=== PATIENT | female | born 1975 | race Hispanic/Latino ===

== ENCOUNTER 2025-01-06 08:59 | Emergency (ER) | payer SELFPAY ==
[~2025-01-06] VITALS: Ht 165.1 cm; Wt 77.1 kg
--- NOTE | 2025-01-06 09:36 | ERN ---
General Chief Complaint: Diarrhea Stated Complaint: DIARRHEA Time Seen by MD: 09:06 History of Present Illness Initial Comments 49-year-old female who presents for weakness and diarrhea. Patient reports for the last three or four days she has been having subjective fevers, so lower abdominal cramping, and multiple episodes of diarrhea. Nausea without vomiting. She was p.o. tolerant but she reports she has a loose stools right after eating. She feels very weak in his no energy. She reports she has been sleeping all day. No cough or congestion. No urinary symptoms. Allergies: Coded Allergies: diphenhydramine (Unverified Allergy, Unknown, 01/06/25) Past Medical History Past Medical History: Cancer, GERD Past Surgical History: Hysterectomy, Other Surgical History Other: MASECTOMY ROS Dictation CONSTITUTIONAL: Generalized weakness and fatigue HEAD/FACE: No signs of trauma. EENT: No eye pain, no blurred vision, no tearing, no double vision, no ear pain, no ear discharge, no nose pain, no nasal congestion, no throat pain, no throat swelling, no mouth pain. RESPIRATORY: No cough, no orthopnea, no SOB, no stridor, no wheezing. CARDIOVASCULAR: No chest pain, no edema, no palpitations, no syncope. GASTROINTESTINAL/ABDOMINAL: Lower abdominal pain and diarrhea GENITOURINARY: No abnormal discharge, no dysuria, no frequent urination, no hematuria. No complaints of pain in the genitals. MUSCULOSKELETAL: No back pain, no gout, no joint pain, no joint swelling, no muscle pain, no muscle stiffness, no neck pain. INTEGUMENTARY: No change in color, no change in hair/nails, no dryness, no lesion, no lumps, no rash. NEUROLOGICAL/PSYCH: No anxiety, not depressed, no emotional problem, no headache, no numbness, no pre-existing deficit, no history of seizures, no tremors, no weakness. HEMATOLOGIC/LYMPHATIC: Not anemic, no history of blood clots, no apparent bleeding, no bruising, glands not swollen. All Systems Negative, Except as Noted. Physical Exam Physical Exam Dictation VITAL SIGNS: Reviewed. GENERAL APPEARANCE: Alert, oriented x3, no acute distress EYES: PERRL, pink conjunctivas, eyelid no trauma, anterior chamber clear. EARS: Pinnas intact and no signs of trauma or erythema. Ear canals clear and no discharge. TMs no erythema. NOSE: No discharge, no bleeding. OROPHARYNX: Mouth normal, teeth no caries, tongue pink. Pharynx clear, no erythema. Tonsils no exudates, no abscesses noted. Mucous membrane moist. NECK: Supple, non-tender, no thyromegaly, no masses, no JVD, no bruits. BREAST: Deferred. CHEST: No tenderness, no crepitus, no paradoxical movement, no retractions. LUNGS: Clear, well-ventilated, symmetric, no rales, no wheezing, no rhonchi, no stridor, good breath sounds bilaterally. HEART: Regular rate, regular rhythm, no murmur, no gallops. VASCULAR: No peripheral edema. ABDOMEN: Soft, positive bowel sounds, nondistended, no guarding, nontender, no rebound, no masses no hepatomegaly, no splenomegaly, no Robb's sign, no hernias. RECTAL: Deferred. GENITAL: Deferred. NEUROLOGICAL: Normal speech, gross motor function intact, gross sensory function intact. MUSCULOSKELETAL: Neck nontender, full range of motion, back nontender, full range of motion. EXTREMITIES: Nontender, full range of motion. SKIN: Color pink, dry, no turgor, no rash, no lacerations, no abrasions, no contusions. LYMPHATICS: Deferred. Results Laboratory and Microbiology Lab and Micro Result Laboratory Tests Test 01/06/25 09:38 01/06/25 10:19 White Blood Count 6.6 K/uL (4.8-10.8) Red Blood Count 4.26 MIL/uL (4.50-6.20) L Hemoglobin 12.5 g/dL (14.0-18.0) L Hematocrit 39.4 % (42-54) L Mean Corpuscular Volume 92.5 fL (79-99) Mean Corpuscular Hemoglobin 29.3 pg (27.0-33.0) Mean Corpuscular Hemoglobin Concent 31.7 g/dL (32.0-36.0) L Red Cell Distribution Width 13.7 % (11.0-15.5) Platelet Count 390 K/uL (130-400) Mean Platelet Volume 10.0 fL (7.5-10.5) Immature Granulocyte % (Auto) 0.2 % (0-1) Neutrophils (%) (Auto) 72.3 % (40.0-77.0) Lymphocytes (%) (Auto) 21.1 % (21.0-51.0) Monocytes (%) (Auto) 4.7 % (3.0-13.0) Eosinophils (%) (Auto) 0.9 % (0.0-8.0) Basophils (%) (Auto) 0.8 % (0.0-5.0) Neutrophils # (Auto) 4.8 K/uL (1.8-7.7) Lymphocytes # (Auto) 1.4 K/uL (1.0-4.8) Monocytes # (Auto) 0.3 K/uL (0.1-1.0) Eosinophils # (Auto) 0.06 K/uL (0.00-0.70) Basophils # (Auto) 0.05 K/uL (0.00-0.20) Absolute Immature Granulocyte (auto 0.01 K/uL (0-1) Nucleated Red Blood Cells 0.0 % (0.0-0.19) Sodium Level 140 mmol/L (136-145) Potassium Level 3.9 mmol/L (3.5-5.1) Chloride Level 101 mmol/L (101-111) Carbon Dioxide Level 31 mmol/L (21-32) Blood Urea Nitrogen 15 mg/dL (7-18) Creatinine 0.8 mg/dL (0.5-1.3) Glomerular Filtration Rate Calc 109 mL/min (>90) Random Glucose 128 mg/dL (70-105) H Total Calcium 10.0 mg/dL (8.5-10.1) Total Bilirubin 0.4 mg/dL (0.2-1.0) Direct Bilirubin 0.1 mg/dL (0.0-0.3) Aspartate Amino Transf (AST/SGOT) 14 U/L (10-37) Alanine Aminotransferase (ALT/SGPT) 21 U/L (12-78) Alkaline Phosphatase 82 U/L (50-136) Total Creatine Kinase 32 U/L (21-232) Total Protein 9.7 g/dL (6.0-8.3) H Albumin 4.2 g/dL (3.5-5.0) Lipase 44 U/L (16-77) Urine Color COLORLESS (YELLOW) Urine Appearance CLEAR (CLEAR) Urine pH 7.0 (5.0-8.0) Urine Specific [place] 1.004 (1.001-1.031) Urine Protein NEGATIVE mg/dL (NEGATIVE) Urine Glucose (UA) NEGATIVE mg/dL (NEGATIVE) Urine Ketones NEGATIVE mg/dL (NEGATIVE) Urine Occult Blood NEGATIVE (NEGATIVE) Urine Nitrate NEGATIVE (NEGATIVE) Urine Bilirubin NEGATIVE mg/dL (NEGATIVE) Urine Urobilinogen 0.2 mg/dL (0.2-1.0) Urine Leukocyte Esterase NEGATIVE Slim/uL Urine RBC None /HPF (0-1) Urine WBC 0-1 /HPF (0-1) Urine Squamous Epithelial Cells FEW /HPF (0-2) Urine Bacteria MANY /HPF (None Seen) Urine Hyaline Casts 2-5 /LPF (0-1 /LPF) H MDM CC: Diarrhea, dehydration Historian: Patient Comorbidities: History of breast cancer resolved, GERD Limitations by social determinants of health: None Differential diagnosis: Electrolyte abnormality, diarrheal illness, dehydration, surgical pathology, colitis, other. Vital signs: Stable, remained stable here in the ER. Labs (independently ordered and interpreted by me ): No leukocytosis, mild normocytic anemia hemoglobin 12.5. Chemistry panel is unremarkable. Liver enzymes normal. CK is normal. Lipase is normal. Urinalysis unremarkable. CT abdomen and pelvis with contrast (independently ordered interpreted by me ): No acute surgical pathology no major abnormalities. Treatment in ED: 1 L lactated Ringer's Patient was p.o. tolerant stable on exam. We will DC with ondansetron, loperamide. DC to PCP follow up. ED Course Orders Procedure Category Date Status Time Cbc With Differential LAB 01/06/25 Complete 09:16 Urinalysis Profile LAB 01/06/25 Complete 09:16 Ct Abdomen/Pelvis CT 01/06/25 Resulted W/Contrast 09:16 Lactated Ringers PHA 01/06/25 Complete 1000ml (Lactated 09:30 Creatine Kinase, Total LAB 01/06/25 Complete 09:16 Lipase LAB 01/06/25 Complete 09:16 Basic Metabolic Panel LAB 01/06/25 Complete 09:16 Hepatic Function Panel LAB 01/06/25 Complete 09:31 Culture Urine OBDULIO 01/06/25 Complete 10:33 Iohexol (Omnipaque) PHA 01/06/25 Complete 11:50 Iohexol (Omnipaque) PHA 01/06/25 Complete 12:02 Current Medications Medications (Trade) Dose Ordered Sig/Irma Route PRN Reason Start Time Stop Time Status Last Admin Dose Admin Iohexol (Omnipaque) 75 ml STK-MED ONCE IV 01/06/25 11:50 01/06/25 11:51 DC Iohexol (Omnipaque) 75 ml STK-MED ONCE IV 01/06/25 12:02 01/06/25 12:03 DC Lactated Ringer's 1,000 ml @ 0 mls/hr ONCE ONCE IV 01/06/25 09:30 01/06/25 09:31 DC 01/06/25 09:44 Vital Signs Date Time Temp Pulse Resp B/P (MAP) Pulse Ox O2 Delivery O2 Flow Rate FiO2 01/06/25 13:39 98.2 71 14 111/79 98 Room Air* 0 21 01/06/25 12:48 75 14 111/79 99 Room Air* 0 21 01/06/25 09:47 76 14 134/85 99 Room Air* 0 21 01/06/25 09:11 98.4 78 16 117/82 97 Room Air 0 DX & DISP Disposition: Discharge Departure Impression: Primary Impression: Diarrhea Additional Impression: Mild dehydration Condition: Stable Additional Instructions: Your symptoms are most consistent with a diarrheal illness and mild dehydration. Your lab work (CBC, BMP, liver function tests, lipase, urinalysis) is unremarkable. Your vital signs are stable. The CT scan of your abdomen and pelvis is unremarkable. I have prescribed ondansetron dissolvable tab to use as needed to prevent vomiting. Be sure to drink plenty of liquids. An electrolyte solution such as Gatorade has been choice. I have prescribed loperamide. You can take this as needed to prevent significant diarrhea. I have prescribed azithromycin, which is an antibiotic. Take as prescribed. I also recommend a probiotic to promote gut health. This is over the counter. Please follow up with your primary doctor for further evaluation. ALLAN MIMS DO January 06, 2025 09:36
[2025-01-06] MEDS: LACTATED RINGERS 1000ML 1,000 ML IV ONE (09:44)
[2025-01-06 09:49] LABS: BASOPHILS # (AUTO) 0.05 K/uL (0.00-0.20); BASOPHILS % (AUTO) 0.8 % (0.0-5.0); EOSINOPHILS # (AUTO) 0.06 K/uL (0.00-0.70); EOSINOPHILS % (AUTO) 0.9 % (0.0-8.0); HEMATOCRIT 39.4 % (42-54); IMMATURE GRANULOCYTE ABSOLUTE 0.01 K/uL (0-1); LYMPHOCYTES # (AUTO) 1.4 K/uL (1.0-4.8); LYMPHOCYTES % (AUTO) 21.1 % (21.0-51.0); MEAN CORPUSCULAR HEMOGLOBIN 29.3 pg (27.0-33.0); MEAN CORPUSCULAR HGB CONC 31.7 g/dL (32.0-36.0); MEAN CORPUSCULAR VOLUME 92.5 fL (79-99); MONOCYTES # (AUTO) 0.3 K/uL (0.1-1.0); MONOCYTES % (AUTO) 4.7 % (3.0-13.0); NEUTROPHILS # (AUTO) 4.8 K/uL (1.8-7.7); NEUTROPHILS % (AUTO) 72.3 % (40.0-77.0); PLATELET COUNT (AUTO) 390 K/uL (130-400); RED BLOOD CELL COUNT(AUTO) 4.26 MIL/uL (4.50-6.20); RED CELL DISTRIBUTION WIDTH 13.7 % (11.0-15.5); WHITE BLOOD COUNT (AUTO) 6.6 K/uL (4.8-10.8)
--- NOTE | 2025-01-06 09:50 | NUR ---
PT MADE AWARE OF URINE ORDER
--- NOTE | 2025-01-06 09:53 | NUR ---
MADE AWARE OF STOOL SAMPLE
[2025-01-06 09:56] LABS: CREATININE 0.8 mg/dL (0.5-1.3); POTASSIUM 3.9 mmol/L (3.5-5.1)
[2025-01-06 10:02] LABS: ALBUMIN 4.2 g/dL (3.5-5.0); BILIRUBIN,DIRECT 0.1 mg/dL (0.0-0.3); BILIRUBIN,TOTAL 0.4 mg/dL (0.2-1.0); TOTAL PROTEIN, SERUM 9.7 g/dL (6.0-8.3)
[2025-01-06 10:28] LABS: APPEARANCE,URINE CLEAR (CLEAR); BILIRUBIN,URINE NEGATIVE (NEGATIVE); COLOR,URINE COLORLESS (YELLOW); GLUCOSE, URINE (UA) NEGATIVE (NEGATIVE); KETONES,URINE NEGATIVE (NEGATIVE); LEUKOCYTE ESTERASE ,URINE NEGATIVE Leu/uL (NEGATIVE); NITRATE,URINE NEGATIVE (NEGATIVE); OCCULT BLOOD,URINE NEGATIVE (NEGATIVE); PROTEIN,URINE NEGATIVE (NEGATIVE); UROBILINOGEN,URINE 0.2 mg/dL (0.2-1.0)
[2025-01-06 10:32] LABS: ADD UA MICROSCOPIC YES
[2025-01-06 10:33] LABS: BACTERIA,URINE MANY /HPF (None Seen); MUCUS,URINE RARE LPF (None Seen); SQUAMOUS EPITHELIAL CELL,UR FEW /HPF (0-2); WBC,URINE 0-1 /HPF (0-1)
[2025-01-06] MEDS ORDERED: IOHEXOL-350 75 ML VIAL IV ONE ×2 (11:50→12:02)
--- NOTE | 2025-01-06 12:49 | HMCIMG ---
CT ABDOMEN/PELVIS W/CONTRAST HISTORY: Abdominal pain COMPARISON: None TECHNIQUE: Multiple sequential axial images of the abdomen and pelvis were obtained from the dome of the diaphragm through symphysis pubis. Patient was not given contrast through intravenous route. Oral contrast was not given. FINDINGS: No pleural effusion is seen bilaterally. There is no evidence of parenchymal disease or pulmonary nodule of the visualized lower lungs. Degenerative changes of the thoracolumbar spine are present. The heart is not enlarged. Liver measures 18 cm The liver, spleen, adrenal glands and pancreas are unremarkable. There is no evidence of hydronephrosis bilaterally. No evidence of renal stone is seen. Fecal material is seen in the colon. There are normal size retroperitoneal and mesenteric lymph nodes. No ascites is seen. Atherosclerotic changes are present. Uterus is not seen. No CT evidence of acute appendicitis is seen. Pelvic sidewalls are symmetric bilaterally. Bladder is well distended without wall thickening. IMPRESSION: 1. No acute findings. CT was performed with one or more following dose reduction techniques: automated exposure control, adjustment of the mA and kv according to patient's size, or use of a iterative reconstruction technique.
[2025-01-06 13:39] VITALS: BP 111/79; PULSE 71; RESP 14; TEMP 98.2; O2SAT 98
== END 2025-01-06 13:48 | disposition home or self-care (01) ==
LOC: EDSEX 08:59 → EDH 08:59
DX: E86.0 Dehydration (principal); R19.7 Diarrhea, unspecified; K21.9 Gastro-esophageal reflux disease without esophagitis; Z88.8 Allergy status to other drugs, medicaments and biological substances; Z90.710 Acquired absence of both cervix and uterus; Z98.890 Other specified postprocedural states
CPT/HCPCS: 99285; 74177; 96360; 82550; 80076; 80048; 83690; 85025; 87086 ×2; 87186; 81001; 36415; 81003; J7120; Q9967